=== PATIENT | male | born 1990 ===

== ENCOUNTER 2019-02-19 19:09 | Emergency (ER) | payer SELFPAY ==
[2019-02-19 19:40] VITALS: BP 169/98; PULSE 80; RESP 18; TEMP 99.6; O2SAT 96
--- NOTE | 2019-02-19 20:25 | ED PDOC ---
HPI: General Adult Time Seen by Provider: 02/19/19 19:42 Chief Complaint (Nursing): ENT Problem Chief Complaint (Provider): ENT Problem History Per: Patient History/Exam Limitations: no limitations Onset/Duration Of Symptoms: Days (2) Current Symptoms Are (Timing): Still Present Additional Complaint(s): 28 year old male presents to the ED for an evaluation of facial injury. Patient reports he was playing soccer 2 days ago when he came in contact with another player whose hand striked his face; he then had acute epistaxis at the time which stopped spontaneously. Currently, patient has nasal pain with swelling and periorbital ecchymosis. Otherwise, he denies loss of consciousness, headache, vomiting, double vision or changes in his vision. Past Medical History Reviewed: Historical Data, Nursing Documentation, Vital Signs Vital Signs: Last Vital Signs Temp 99.6 F 02/19/19 19:38 Pulse 80 02/19/19 19:38 Resp 18 02/19/19 19:38 BP 169/98 H 02/19/19 19:38 Pulse Ox 96 02/19/19 19:38 - Medical History PMH: No Chronic Diseases - Family History Family History: States: Unknown Family Hx - Home Medications Home Medications: Ambulatory Orders Medication Instructions Recorded No Known Home Med 07/16/15 Unobtainable 07/16/15 - Allergies Allergies/Adverse Reactions: Allergies Allergy/AdvReac Type Severity Reaction Status Date / Time No Known Allergies Allergy Verified 02/19/19 19:37 Review of Systems ROS Statement: Except As Marked, All Systems Reviewed And Found Negative Eyes: Positive for: Other (periorbital ecchymosis). Negative for: Vision Change ENT: Positive for: Nose Pain, Other (nose swelling) Gastrointestinal: Negative for: Vomiting Neurological: Negative for: Headache, Other (LOC) Physical Exam - Reviewed Nursing Documentation Reviewed: Yes Vital Signs Reviewed: Yes - Physical Exam Appears: Positive for: Well, Non-toxic, No Acute Distress Head Exam: Positive for: ATRAUMATIC, NORMAL INSPECTION, NORMOCEPHALIC Skin: Positive for: Normal Color, Warm, DRY Eye Exam: Positive for: EOMI (intact without pain), PERRL, Periorbital tenderness (mild bilateral periorbital tenderness and ecchymosis with no swelling), Other (mild injection with no hyphema). Negative for: Normal appearance (Orbits have moderate ecchymosis on bilateral periorbital area with mild associated tenderness ), Periorbital swelling ENT: Positive for: Other (no septal hematoma and no active bleeding). Negative for: Normal ENT Inspection (moderate swelling and tenderness over nasal bridge ), Sinus Pain/Drainage Neck: Positive for: Normal, Painless ROM Back: Negative for: Vertebral Tenderness - ECG O2 Sat by Pulse Oximetry: 96 (RA) Pulse Ox Interpretation: Normal Medical Decision Making Medical Decision Making: Time: 2013 Plan: Patient declined pain medication when offered. He will receive maxillofacial w/o contrast CT. 21:40 CT FINDINGS: BONES: Comminuted bilateral nasal bone fractures are identified; more pronounced on the right. The right nasal bone main fracture fragment is displaced laterally by an estimated 3.9 mm. The left main nasal bone fracture fragment is displaced medially by an estimated 3.4 mm. No aggressive appearing osseous lesion. The mandible is intact. SOFT TISSUES: The soft tissues are unremarkable. SINUSES: Mucoperiosteal thickening noted in the right maxillary, left frontal and sphenoid sinuses compatible with sinusitis. The remaining sinuses are clear. ORBITS: Bilateral periorbital and preseptal soft tissue swelling present. No retrobulbar hematoma or mass. IMPRESSION: 1. Comminuted bilateral nasal bone fractures as described above. 2. Bilateral periorbital/preseptal soft tissue swelling noted. 3. Evidence of right maxillary, left frontal and sphenoid sinusitis. CT discussed with pt, no sinusitis symptoms. ENT referral given. Scribe Attestation: Documented by Rene Winter acting as a scribe for Diana Morris PA-C. Provider Scribe Attestation: All medical record entries made by the Scribe were at my direction and personally dictated by me. I have reviewed the chart and agree that the record accurately reflects my personal performance of the history, physical exam, medical decision making, and the department course for this patient. I have also personally directed, reviewed, and agree with the discharge instructions and disposition. Disposition - Clinical Impression Clinical Impression: Nose fracture - Disposition Referrals: Robin Gonzalez MD [Staff Provider] - Disposition Time: 22:14 Condition: STABLE Instructions: Nose Fracture (DC) Forms: [facility] (Honduran), [facility] ED School/Work Excuse Print Language: PERUVIAN
--- NOTE | 2019-02-20 11:16 | CT ---
Date of service: 02/19/2019 PROCEDURE: CT MAXILLOFACIAL BONES WITHOUT CONTRAST HISTORY: Periorbital and nasal swelling s/p injury COMPARISON: None available. TECHNIQUE: Contiguous axial CT images of the maxillofacial bones were obtained. Coronal and sagittal reformats were generated. Radiation dose: Total exam DLP = 760.79 mGy-cm. This CT exam was performed using one or more of the following dose reduction techniques: Automated exposure control, adjustment of the mA and/or kV according to patient size, and/or use of iterative reconstruction technique. FINDINGS: NASAL BONES: Comminuted displaced bilateral nasal bone fractures with overlying soft tissue swelling. Swelling extends laterally into the right and left pre maxillary soft tissues as well as into the periorbital and supraorbital soft tissues and frontal scalp. ORBITS: Bony orbits intact. Periorbital-supraorbital soft tissue swelling as above PARANASAL SINUSES/ MASTOIDS: Minor mucosal thickening seen in the right maxillary antrum, several ethmoid air cells extending superiorly into the inferior aspect of the frontal sinus. There is also marked mild mucosal thickening in the sphenoid sinus. MAXILLA: Maxilla including the anterior nasal spine intact. MANDIBLE/ TEMPOROMANDIBULAR JOINTS: Unremarkable. SKULL BASE: Unremarkable. TEMPORAL BONES: Middle ears and mastoid grossly unremarkable. OTHER FINDINGS: None. IMPRESSION: There are comminuted displaced bilateral nasal bone fractures with overlying soft tissue swelling. Moderate pre maxillary and periorbital soft tissue swelling that extends superiorly into the supraorbital soft tissues and inferior frontal scalp.
== END 2019-02-19 22:12 | disposition home or self-care (01) ==
LOC: H.ER 19:09
DX: S02.2XXA Fracture of nasal bones, initial encounter for closed fracture (principal); W22.8XXA Striking against or struck by other objects, initial encounter; Y93.66 Activity, soccer; J32.3 Chronic sphenoidal sinusitis